=== PATIENT | male | born 1970 | race Caucasian/White ===

== ENCOUNTER 2017-11-28 09:10 | Emergency (ER) | payer OTHER ==
[2017-11-28 09:13] VITALS: TEMP 36.4
[2017-11-28 10:13] LABS: BASO % 0.4 %; BASO ABS # 0.03 K/uL (0-0.2); EOS % 0.6 %; EOS ABS # 0.04 K/uL (0-0.5); HEMATOCRIT 45.3 % (42-52); HEMOGLOBIN 15.5 g/dL (14.0-18.0); IG# 0.01 K/uL (0.00-0.02); LYMPH % 21.6 %; LYMPH ABS # 1.55 K/uL (1.2-3.4); MEAN CELL VOLUME 91.5 fL (80-100); MEAN CORPUSCULAR HEMOGLOBIN 31.3 pg (25-34); MEAN CORPUSCULAR HGB CONC 34.2 g/dl (32-36); MONO % 12.2 %; MONO ABS # 0.87 K/uL (0.11-0.59); NEUT % 65.1 %; NEUT ABS # 4.66 K/uL (1.4-6.5); PLATELET COUNT 198 K/uL (130-400); RED CELL DISTRIBUTION WIDTH CV 12.8 % (11.5-14.5); RED CELL DISTRIBUTION WIDTH SD 42.7 fL (36.4-46.3); WHITE BLOOD COUNT 7.16 K/uL (4.8-10.8)
[2017-11-28 10:44] LABS: ALBUMIN 4.3 gm/dl (3.4-5.0); ALKALINE PHOSPHATASE 61 U/L (45-117); ALT/SGPT 59 U/L (12-78); AST/SGOT 47 U/L (15-37); BLOOD UREA NITROGEN 8 mg/dl (7-18); CALCIUM 9.3 mg/dl (8.5-10.1); CARBON DIOXIDE 29 mmol/L (21-32); CREATININE 1.11 mg/dl (0.60-1.40); GLUCOSE 98 mg/dl (70-99); POTASSIUM 3.8 mmol/L (3.5-5.1); SODIUM 138 mmol/L (136-145); TOTAL PROTEIN 8.4 gm/dl (6.4-8.2)
--- NOTE | 2017-11-28 12:08 | EMERGENCY ROOM VISIT NOTE ---
History Report prepared by Lisa: Brent Thornton Under the Supervision of: Damian LomaxO. First contact with patient: 09:27 Chief Complaint: MENTAL HEALTH EVALUATION Stated Complaint: MENTAL HEALTH EVAL 302 History of Present Illness The patient is a 47 year old male who presents to the Emergency Room for a 302 evaluation. He reports that he does not have any current complaints and states that nothing is happening. He reports that he does not have any thoughts of harming himself, suicide, or harming others. He also denies drug or alcohol use. He states that he is not hearing voices or seeing people that are not there , although he reports a history of schizophrenia. The patient states that he has been taking his medications for schizophrenia and has not missed any doses. The patient notes that he lives with his sister. Pt denies headache, change in vision, fevers, chest pain, abdominal pain, shortness of breath, nausea, vomiting, diarrhea, and pain with urination. History is limited secondary to psychiatric issues. Source of History: patient History Limited By: other (psychiatric issues) Note: denies thoughts of harming himself or others, denies thoughts of suicide Review of Systems See HPI for pertinent positives & negatives. A total of 10 systems reviewed and were otherwise negative. Past Medical & Surgical Medical Problems: (1) Schizophrenia Family History Patient reports no known family medical history. Social History Smoking Status: Never Smoker Housing Status: other (lives with sister) Current/Historical Medications Unable to Obtain Active Prescriptions or Reported Meds Allergies Coded Allergies: No Known Allergies (Verified , 05/31/02) Uncoded Allergies: N (Allergy, Unknown, 05/31/02) Physical Exam Vital Signs Date Time Temp Pulse Resp B/P (MAP) Pulse Ox O2 Delivery O2 Flow Rate FiO2 11/28/17 16:05 91 18 136/85 96 11/28/17 14:20 106 18 135/72 97 Room Air 11/28/17 10:40 95 18 168/80 98 Room Air 11/28/17 09:13 36.4 74 18 152/92 98 Room Air Physical Exam GENERAL: Standing in room and hard of hearing. Alert, well appearing, well nourished, no distress, non-toxic EYE EXAM: normal conjunctiva. OROPHARYNX: no exudate, no erythema, lips, buccal mucosa, and tongue normal and mucous membranes are moist NECK: supple, no nuchal rigidity, no adenopathy, non-tender LUNGS: Clear to auscultation. Normal chest wall mechanics HEART: no murmurs, S1 normal and S2 normal ABDOMEN: abdomen soft, non-tender, normo-active bowel sounds, no masses, no rebound or guarding. BACK: Back is symmetrical on inspection and there is no deformity, no midline tenderness, no CVA tenderness. SKIN: no rashes and no bruising UPPER EXTREMITIES: upper extremities are grossly normal. LOWER EXTREMITIES: No pitting edema. NEURO EXAM: Alert following commands, cranial nerves II-XII grossly intact, normal speech, no gross weakness of arms, no gross weakness of legs. PSYCH: Denies suicidal ideation or homicidal ideation. Poor insight, responding to internal stimuli Medical Decision & Procedures Laboratory Results 11/28/17 10:01 Red Blood Count 4.95, Mean Corpuscular Volume 91.5, Mean Corpuscular Hemoglobin 31.3, Mean Corpuscular Hemoglobin Concent 34.2, Mean Platelet Volume 10.0, Neutrophils (%) (Auto) 65.1, Lymphocytes (%) (Auto) 21.6, Monocytes (%) (Auto) 12.2, Eosinophils (%) (Auto) 0.6, Basophils (%) (Auto) 0.4, Neutrophils # (Auto ) 4.66, Lymphocytes # (Auto) 1.55, Monocytes # (Auto) 0.87, Eosinophils # (Auto ) 0.04, Basophils # (Auto) 0.03 11/28/17 10:01 Test 11/28/17 09:28 11/28/17 10:01 Urine Color YELLOW Urine Appearance CLEAR (CLEAR) Urine pH 6.5 (4.5-7.5) Urine Specific [place] 1.009 (1.000-1.030) Urine Protein NEG (NEG) Urine Glucose (UA) NEG (NEG) Urine Ketones TRACE (NEG) Urine Occult Blood NEG (NEG) Urine Nitrite NEG (NEG) Urine Bilirubin NEG (NEG) Urine Urobilinogen NEG (NEG) Urine Leukocyte Esterase NEG (NEG) Urine Opiates Screen NEG (NEG) Urine Methadone, Qualitative NEG (NEG) Urine Barbiturates NEG (NEG) Urine Phencyclidine (PCP) Level NEG (NEG) Ur Amphetamine/Methamphetamine NEG (NEG) MDMA (Ecstasy) Screen NEG (NEG) Urine Benzodiazepines Screen NEG (NEG) Urine Cocaine Metabolite NEG (NEG) Urine Marijuana (THC) NEG (NEG) White Blood Count 7.16 K/uL (4.8-10.8) Red Blood Count 4.95 M/uL (4.7-6.1) Hemoglobin 15.5 g/dL (14.0-18.0) Hematocrit 45.3 % (42-52) Mean Corpuscular Volume 91.5 fL (80-100) Mean Corpuscular Hemoglobin 31.3 pg (25-34) Mean Corpuscular Hemoglobin Concent 34.2 g/dl (32-36) Platelet Count 198 K/uL (130-400) Mean Platelet Volume 10.0 fL (7.4-10.4) Neutrophils (%) (Auto) 65.1 % Lymphocytes (%) (Auto) 21.6 % Monocytes (%) (Auto) 12.2 % Eosinophils (%) (Auto) 0.6 % Basophils (%) (Auto) 0.4 % Neutrophils # (Auto) 4.66 K/uL (1.4-6.5) Lymphocytes # (Auto) 1.55 K/uL (1.2-3.4) Monocytes # (Auto) 0.87 K/uL (0.11-0.59) Eosinophils # (Auto) 0.04 K/uL (0-0.5) Basophils # (Auto) 0.03 K/uL (0-0.2) RDW Standard Deviation 42.7 fL (36.4-46.3) RDW Coefficient of Variation 12.8 % (11.5-14.5) Immature Granulocyte % (Auto) 0.1 % Immature Granulocyte # (Auto) 0.01 K/uL (0.00-0.02) Anion Gap 7.0 mmol/L (3-11) Estimated GFR () 91.2 Estimated GFR (Non- 78.7 BUN/Creatinine Ratio 6.9 (10-20) Calcium Level 9.3 mg/dl (8.5-10.1) Total Bilirubin 0.6 mg/dl (0.2-1) Direct Bilirubin 0.2 mg/dl (0-0.2) Aspartate Amino Transf (AST/SGOT) 47 U/L (15-37) Alanine Aminotransferase (ALT/SGPT) 59 U/L (12-78) Alkaline Phosphatase 61 U/L (45-117) Total Protein 8.4 gm/dl (6.4-8.2) Albumin 4.3 gm/dl (3.4-5.0) Thyroid Stimulating Hormone (TSH) 2.580 uIu/ml (0.300-4.500) Ethyl Alcohol mg/dL < 3.0 mg/dl (0-3) Laboratory results per my review. ED Course ED COURSE: Vital signs were reviewed and showed hypertension that is felt to be situational The patients medical record was reviewed The above diagnostic studies were performed and reviewed. ED treatments and interventions as stated above. 0932: The patient was evaluated in room A7. A complete history and physical examination was performed. 1152: The patient's 302 was signed. The patient remained stable while under my care. Medical Decision Differential diagnosis: Etiologies such as mood disorder, infection, hypoglycemia, electrolyte abnormalities, cardiac sources, intracerebral event, toxicologic, neurologic, as well as others were entertained. Patient is a 47-year-old male who is brought in by can help on a 302 as he is hearing voices and responding to internal stimuli. Patient has no other complaints at this time. CBC along with BMP, LFTs, bilirubin and TSH was unremarkable. Tox, alcohol and UA was negative. 302 upheld due to the above findings in HPI with the poor insight, responding to internal stimuli. Patient was accepted and transferred to the [facility] on a 302. Medication Reconcilliation Current Medication List: was personally reviewed by me Blood Pressure Screening Patient's blood pressure: Elevated blood pressure Blood pressure disposition: Elevated BP felt to be situational Impression Primary Impression: Mood disorder Scribe Attestation The scribe's documentation has been prepared under my direction and personally reviewed by me in its entirety. I confirm that the note above accurately reflects all work, treatment, procedures, and medical decision making performed by me. Departure Information Prescriptions Unable to Obtain Active Prescriptions or Reported Meds Referrals No Doctor, Assigned (PCP) Patient Instructions [facility]
[2017-11-28] MEDS ORDERED: ACETAMINOPHEN 500 MG TAB PO STA (13:36)
[2017-11-28 16:05] VITALS: BP 136/85; PULSE 91; O2SAT 96
== END 2017-11-28 16:06 ==
LOC: C.EDB 09:11 → C.EDA 16:06
DX: F39 Unspecified mood [affective] disorder (principal); R44.0 Auditory hallucinations; Z86.59 Personal history of other mental and behavioral disorders